=== PATIENT | female | born 1940 | race Caucasian/White ===

== ENCOUNTER → 2016-04-14 | Outpatient (CLI) | payer OTHER ==
--- NOTE | 2016-04-14 17:12 | MA ---
Screening Digital Mammogram With iCAD Analysis Clinical Indications: Routine screening. Technique: Standard cephalocaudal projections are obtained. Digital breast tomosynthesis was performe d in the MLO projection with reconstruction at 1.0 mm slice thickness and composite MLO views reconst ructed. This examination is processed by the iCAD computer aided detection system. Comparison: May 2011, April 2010, April 2008, May 2007. Breast density: Type A: Fatty. Findings: CAD was reviewed. No masses, suspicious calcifications or secondary signs of malignancy are seen. There has been no significant change in the appearance of either breast. Vascular calcificatio ns are noted. Impression: Negative mammogram. BI-RADS 1. Recommendation: Routine mammographic screening in one year. [facility] will send a result letter to the patient. Negative mammography should not preclude additional workup of a clinically suspicious finding. The patient's information is entered into a reminder system with a target due date for her next mammo gram.
== END ==
LOC: FIMAGING 12:39
DX: Z12.31 Encounter for screening mammogram for malignant neoplasm of breast (principal)

== ENCOUNTER 2016-05-02 12:42 | Inpatient (IN) | payer OTHER ==
--- NOTE | 2016-05-02 12:50 | EDPHY ---
H & P Time Seen by Provider: 05/02/16 12:47 - Personal History Tetanus Vaccine Date: < 10 YEARS - Medical/Surgical History Hx Asthma: No Hx Chronic Respiratory Disease: No Hx Diabetes: No Hx Cardiac Disease: Yes Hx Renal Disease: No Hx Cirrhosis: No Hx Alcoholism: No Hx HIV/AIDS: No Hx Splenectomy or Spleen Trauma: No Other PMH: VEIN STRIPPING, DIVERTICULITIS, PARTIAL COLON RESECTION, GOUT, HTN, DVT x2/AFIB - Social History Smoking Status: Former smoker Constitutional: Initial Vital Signs Temperature (C) 36.9 C 05/02/16 12:53 Heart Rate 78 05/02/16 12:53 Respiratory Rate 16 05/02/16 12:53 Blood Pressure 171/86 H 05/02/16 12:53 O2 Sat (%) 96 05/02/16 12:53 O2 Delivery Mode Room Air Allergies/Adverse Reactions: furosemide [From Lasix] Allergy (Severe, Verified 05/02/16 12:53) Other-Enter Comments cephalexin [Cephalexin] Allergy (Intermediate, Verified 05/02/16 12:53) Rash amoxicillin trihydrate [From Augmentin] Allergy (Verified 05/02/16 12:53) redness, itching doxycycline Allergy (Verified 05/02/16 12:53) potassium clavula *RETIRED-11/10/11 [From Augmentin] Allergy (Verified 05/02/16 12:53) redness, itching antibiotic unknown Allergy (Intermediate, Uncoded 05/02/16 12:53) Rash Home Medications: Medication Instructions Recorded Warfarin Sodium [Coumadin 5MG (*)] 5 mg PO TUFR@16 09/09/14 Allopurinol [Allopurinol 300 MG 450 mg PO DAILY 05/29/15 (RX)] Cetirizine [ZyrTEC 10 mg (*)] 10 mg PO DAILY 05/29/15 Cholecalciferol Vit D3 [Vitamin D3 2,000 units PO HS 05/29/15 2000 units] Triamterene/Hctz 75/50 [Maxzide 1 tab PO DAILY 05/29/15 75-50 mg Tab (*)] Warfarin Sodium [Coumadin 2.5MG 2.5 mg PO SUMOWETHSA@16 05/29/15 (*)] Diltiazem Cd [Cardizem ER 120 MG 120 mg PO DAILY #30 cap 05/30/15 (*)] Hydrocodone/Acetaminophen [[place] 1 each PO Q6 PRN 05/30/15 5-325 Tablet] HYDROcodone/APAP 10 [[place] 1 - 2 each PO Q4-6PRN PRN #20 tab 05/02/16 10/325] Medical Decision Making ED Course/Re-evaluation: CHIEF COMPLAINT: Fall and left arm pain HISTORY OF PRESENT ILLNESS: 75-year-old female who was taking her comforter to the nursing director when she tripped over the bag that the comforter was in and fell onto the edge of the counter at the nursing director. She denies hitting anything except her left upper arm and her left ribs as the arm was pushed into the ribs. She denies loss of consciousness. This was not a syncopal episode. This was a mechanical fall after tripping on a bag. REVIEW OF SYSTEMS: A 10 point review of systems was performed and is negative with the exception of the elements mentioned in the history of present illness. PHYSICAL EXAM: HR, BP, O2 Sat, RR. Temp noted General Appearance: Alert, well hydrated, appropriate, and non-toxic appearing. Head: Atraumatic without scalp tenderness or obvious injury Eyes: Pupils equal, round, reactive to light and accommodation, EOMI, no trauma , no injection. Ears: Clear bilaterally, no perforation, normal landmarks Nose: Atraumatic, no rhinorrhea, clear. Throat: There is no erythema or exudates, no lesions, normal tonsils, mucus membranes moist. Neck: Supple, 2+ carotid upstroke, nontender, no lymphadenopathy. Respiratory: No retractions, no distress, no wheezes, and no accessory muscle use. Lungs are clear to auscultation bilaterally. Cardiovascular: Regular rate and rhythm, no murmurs, rubs, or gallops. Bilateral carotid, radial, dorsalis pedis, and posterior tibial pulses intact. Good capillary refill all extremities. Gastrointestinal: Abdomen is soft, nontender, non-distended, no masses, no rebound, no guarding, no peritoneal signs. Musculoskeletal: Pain to palpation of the left upper extremity and pain to any motion. Neurovascularly intact. Elbow and wrist distal to the injury are without problems. Otherwise, Normal active ROM of all extremities, atraumatic. Neurological: Alert, appropriate, and interactive. The patient has normal DTRs and non-focal cranial nerves, motor, sensory, and cerebellar exam. Skin: No rashes, good turgor, no nodules on palpation. Past medical history: Multiple antibiotic allergies infections otherwise noncontributory Past surgical history: Noncontributory Family history: Noncontributory Social history: Single, does not abuse drugs or alcohol, retired DIAGNOSTICS/PROCEDURES/CRITICAL CARE TIME: Study: PA and Lateral Chest X-ray Indication: Trauma Results: After viewing the images myself on the PACS system. My interpretation of the images is: no rib fractures or pneumothorax, suspect fracture of left humeral head fracture. The radiologist interpretation is pending at the time of this dictation. I have discussed the above x-rays with the radiologist. Study: left humerus x-ray Indication: Trauma Results: I viewed the images myself on the PACS system. The radiologist's interpretation is: Nondisplaced fracture of the left greater tuberosity. The radiologist was Dr. Xiong. DIFFERENTIAL DIAGNOSIS: Includes but is not limited to intracranial injury, rib fracture, rib contusion, pneumothorax, left shoulder dislocation, left arm fracture MEDICAL DECISION MAKING: This patient is having significant pain from the left upper extremity. She complains some about her left chest but mostly about her left upper extremity. Worse establishing IV access given her pain medicine to get her comfortable and x-rays are pending. X-rays show a non-displaced left humeral head fracture. I discussed these findings with the patient. She remains neurovascularly intact. She will be discharged in a sling with a script for [place] and referral to ortho. Return precautions given. 1506: As RN was discharging patient, she expressed that she felt uncomfortable going home. She lives alone and does not think she will be able to care for herself at home and feels her pain is not manageable. RN reports she was unsteady on her feet and required assistance to walk. We will involve case management to see what options are available to the patient for home care. bilingual branch manager reports patient has few options for assistance at home and specialist follow up. She recommends admission. 1510: Spoke with hospitalist service. Dr. Miguel accepts admission. Departure - Departure Disposition: [facility] Inpatient Acute Clinical Impression: Intractable pain, Lives alone without help available Humeral head fracture Qualifiers: Encounter type: initial encounter Fracture type: closed Laterality: left Qualified Code(s): S42.292A - Other displaced fracture of upper end of left humerus, initial encounter for closed fracture Condition: Good Instructions: Arm Fracture in Adults (ED) Additional Instructions: 1. Take [place] as prescribed when needed for pain. 2. Keep arm in sling until follow up. 3. You can try applying ice to sore areas. Expect to feel more sore tomorrow. 4. Follow up with orthopedic surgeon next week. 5. Return to the ED for severe pain, weakness or numbness in your hand, or other worsening of condition. Referrals: Estiven Guadarrama MD [Medical Doctor] - As per Instructions Prescriptions: HYDROcodone/APAP 325 [[place] 10/325] 1 - 2 each PO Q4-6PRN PRN #20 tab PRN Reason: Pain, Moderate Report Scribed for: Felton La Report Scribed by: Gabrielle Solomon Date of Report: 05/02/16 Time of Report: 14:35
[2016-05-02] MEDS ORDERED: ONDANSETRON 4 MG/2 ML VIAL ONE (12:59)
[2016-05-02] MEDS ORDERED: HYDROmorphONE/DILAUDID 1 MG/ML SYR ONE (12:59)
[2016-05-02] MEDS ORDERED: OXYCODONE/APAP 5/325 TAB ONE (14:55)
[2016-05-02] MEDS ORDERED: OXYCODONE/APAP 5/325 TAB PO ONE (16:04)
[2016-05-02] MEDS ORDERED: HYDROmorphONE/DILAUDID 2 MG/ML INJ IVP ONE (16:05)
[2016-05-02] MEDS ORDERED: LACTULOSE 20 GM/30 ML UDCUP PO PRN (16:27)
[2016-05-02] MEDS ORDERED: BISACODYL 10 MG SUPP PR PRN (16:27)
[2016-05-02] MEDS ORDERED: ONDANSETRON 4 MG/2 ML VIAL IVP PRN (16:27)
[2016-05-02] MEDS ORDERED: ACETAMINOPHEN 325 MG TAB PO PRN (16:27)
[2016-05-02] MEDS ORDERED: MAGNESIUM HYDROXIDE 30 ML UDCUP PO PRN (16:27)
[2016-05-02] MEDS ORDERED: POLYETHYLENE GLYCOL 3350 17 GM PKT PO PRN (16:27)
--- NOTE | 2016-05-02 16:51 | GHP ---
DATE OF ADMISSION: 05/02/2016 CHIEF COMPLAINT: Left shoulder pain. HISTORY OF PRESENT ILLNESS: This is a 75-year-old female with history of atrial fibrillation, hyper tension, DVT, who presented to the emergency department after sustaining a mechanical fall today. The patient states that she got off work, and was taking her comforter to the street light cleaner to have it kong ndered after her cat vomited on it. While walking into the street light cleaner, she tripped over the bag, causi ng her to fall forward and hitting her left shoulder on the counter. She had immediate severe pain over her left shoulder. She denies any head trauma. She denies any loss of consciousness. In the emergency department, she continued to have severe pain and was thought to be unsteady on her feet, and we were, therefore, asked to admit the patient for further observation since she lives al one. PAST MEDICAL HISTORY: 1. Atrial fibrillation. 2. Hypertension. 3. DVT. 4. Gout. 5. Diverticulitis with colon perforation. 6. Obesity. 7. Chronic renal insufficiency. 8. Peripheral vascular disease. 9. Osteopenia. 10. Chronic sinusitis. 11. Vitamin D deficiency. PAST SURGICAL HISTORY: Colon resection, and vein stripping. HOME MEDICATIONS: Reviewed. Refer to [employer] for details. ALLERGIES: Reviewed. Refer to [employer] for details. SOCIAL HISTORY: The patient lives alone independently. She denies any alcohol tobacco or illicit d rug use. She is a former smoker. REVIEW OF SYSTEMS: Comprehensive 10-point review of systems was done and is negative except for as mentioned in the HPI. PHYSICAL EXAMINATION: VITAL SIGNS: Blood pressure 141/86, pulse of 80, respiratory rate 16, O2 sat uration 96% on room air. Temperature afebrile. GENERAL: No acute distress. HEART: S1, S2. LUNG S: Clear. ABDOMEN: Soft. EXTREMITIES: No clubbing or cyanosis. NEUROLOGIC: Cranial nerves 2-1 2 grossly intact. No focal motor or sensory deficits. CARDIOVASCULAR: 2+ radial pulses bilaterall y. SKIN: No signs of any open fracture of the left shoulder. DIAGNOSTICS: Chest x-ray, which I visualized and personally interpreted, shows a probable nondispla sergio fracture of the proximal left humerus. Humerus x-ray shows nondisplaced fracture of the left greater tuberosity. ASSESSMENT: 1. This is a 75-year-old female, status post mechanical fall, sustaining a nondisplaced fracture of the left greater tuberosity: The patient will be placed on observation since she lives alone and i s having severe pain over her left shoulder, and seems to be a fall risk. Will ask PT and OT to cornell luate the patient. We will treat her pain with Vicodin and ice. It does not appear that Orthopedic s was called in the emergency department, and I will call the on-call orthopedic surgeon, for furthe r evaluation. 2. History of deep venous thrombosis: We will check an INR, as well as baseline labs and continue home medications. 3. History of hypertension: Continue blood pressure medications and monitor. /[id number]/MODL
[2016-05-02] MEDS: oxyCODONE IR 5 MG TAB PO PRN ×2 (16:53→20:56)
[2016-05-02 17:41] LABS: % IMMATURE GRANULYOCYTES 1.3 % (0.0-1.1); ABSOLUTE IMMATURE GRANULOCYTES 0.22 10^3/uL (0.00-0.10); ADD DIFF? NO; ADD MORPH? NO; ADD SCAN? NO; ATYPICAL LYMPHOCYTE FLAG 0 (0-99); FRAGMENT RBC FLAG 0 (0-99); HEMOGLOBIN 12.9 g/dL (12.6-16.3); LEFT SHIFT FLG 10 (0-99); LIPEMIA HEMOLYSIS FLAG 80 (0-99); MEAN CELL HEMOGLOBIN 29.3 pg (27.9-34.1); MEAN CELL HEMOGLOBIN CONCENTR. 32.3 g/dL (32.4-36.7); MEAN CELL VOLUME 90.7 fL (81.5-99.8); MEAN PLATELET VOLUME 10.4 fL (8.7-11.7); PLATELET CLUMPS FLAG 10 (0-99); PLATELET COUNT 267 10^3/uL (150-400); RED BLOOD CELL COUNT 4.41 10^6/uL (4.18-5.33); RED CELL DISTRIBUTION WIDTH 16.8 % (11.5-15.2)
[2016-05-02 17:42] LABS: INR 2.12 (0.83-1.16); PROTIME(PATIENT) 23.9 SEC (12.0-15.0)
[2016-05-02 17:45] LABS: ANION GAP 13 mEq/L (8-16); CALCIUM 10.2 mg/dL (8.5-10.4); CARBON DIOXIDE 23 mEq/l (22-31); CHLORIDE 104 mEq/L (97-110); CREATININE 1.8 mg/dL (0.6-1.0); GLOMERULAR FILTRATION RATE 28; GLUCOSE 119 mg/dL (70-100); POTASSIUM 3.4 mEq/L (3.5-5.2); SODIUM 140 mEq/L (134-144)
[2016-05-02] MEDS: ASCORBIC ACID 500 MG TAB PO SCH (20:55)
[2016-05-02] MEDS: CHOLECALCIFEROL VIT D3 2,000 UNITS TAB/CAP PO SCH (20:56)
[2016-05-02] MEDS: MAGNESIUM OXIDE 400 MG TAB PO SCH (20:56)
[2016-05-02] MEDS: SENNOSIDES/DOCUSATE SODIUM TAB PO SCH (20:58)
[2016-05-02] MEDS: CETIRIZINE 10 MG TAB PO SCH (20:59)
[2016-05-02] MEDS: WARFARIN SODIUM 5 MG TAB PO SCH (21:04)
[2016-05-03] MEDS: oxyCODONE IR 5 MG TAB PO PRN ×5 (04:35→21:21)
--- NOTE | 2016-05-03 06:46 | PDCONSULT ---
Grounds Cleaner Note: Orthopaedic Consult Note S: Patient is a 75y F who writes with her left hand p/w L shoulder and arm pain after fall directly on arm/shoulder. 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 She refused to move until the firemen came. She describes pain all around the soft tissues of her lateral/posterior arm and shoulder. She feels it is painful to move the arm. She was put into a sling in the ED. She was admitted for pain control and a consult was called. Her left arm and hand have been weaker than her right for a long time, but she writes with her left hand PMHx: Includes history of clotting. Eczema. Allergies: Includes lasix, ancef, amoxicillin, doxycycline FamHx: noncontributory Meds: Includes warfarin ROS: No acute issues wiht sight, hearing, breathing, GI, , CV. Regular bleeding from skin due to picking and eczema. Left leg wound/abscess recently drained and dressed. add'l MSK per above. PE: AxOx3 Unlabored breathing hearing intact Moving head and neck LUE in sling Mild edema of Left arm and shoulder. Significant L arm pannus. Palpating border of acromion/clavicle, the humeral head seems roughly centered in the sagittal plane Multiple scabs/sores from patient scratching. No signficant ecchymosis of the arm at this time Diffuse TTP from clavicle/acromion all the was down to lateral arm at elbow and along posterior arm. Possibly more TTP around humeral head. SILT A/R/U/M 4/5 EPL/APB/FDS/FDP2,5/IO Pt refuses to use biceps/triceps nor move arm 2+ radial pulse Imaging: Questionable possible greater tuberosity fracture on initial films. Soft tissue shadow vs hairline fracture line down shaft humeral head appears located, but difficult to distinguish AP: 75y LHD F p/w possible nondisplaced L humerus tuberosity fracture and diffuse soft tissue contusion - Due to the patient's inability to participate in the exam ROM, we will obtain an axillary/velpeau axillary view to confirm location of the joint - Sling for comfort - come out of sling for elbow ROM 3x per day - 15 pound limit in left hand while in sling - If a fracture is present, it is minimally displaced and should improve with time. - We'll see her for followup in ~2 weeks to ensure she's improving
[2016-05-03] MEDS: SENNOSIDES/DOCUSATE SODIUM TAB PO SCH ×2 (08:10→21:21)
[2016-05-03] MEDS: ASCORBIC ACID 500 MG TAB PO SCH ×2 (08:10→21:21)
[2016-05-03] MEDS: CETIRIZINE 10 MG TAB PO SCH ×2 (08:10→21:21)
[2016-05-03] MEDS: ATENOLOL 25 MG TAB PO SCH (08:10)
[2016-05-03 08:14] LABS: ABSOLUTE IMMATURE GRANULOCYTES 0.11 10^3/uL (0.00-0.10); ADD DIFF? NO; ADD MORPH? NO; ADD SCAN? NO; ATYPICAL LYMPHOCYTE FLAG 0 (0-99); FRAGMENT RBC FLAG 0 (0-99); HEMATOCRIT 38.3 % (38.0-47.0); HEMOGLOBIN 12.4 g/dL (12.6-16.3); LEFT SHIFT FLG 0 (0-99); LIPEMIA HEMOLYSIS FLAG 80 (0-99); MEAN CELL HEMOGLOBIN 28.7 pg (27.9-34.1); MEAN CELL HEMOGLOBIN CONCENTR. 32.4 g/dL (32.4-36.7); MEAN CELL VOLUME 88.7 fL (81.5-99.8); MEAN PLATELET VOLUME 9.6 fL (8.7-11.7); PLATELET CLUMPS FLAG 0 (0-99); PLATELET COUNT 227 10^3/uL (150-400); RED BLOOD CELL COUNT 4.32 10^6/uL (4.18-5.33); RED CELL DISTRIBUTION WIDTH 16.9 % (11.5-15.2)
[2016-05-03] MEDS ORDERED: TRIAMTERENE/HCTZ 75/50 1 EACH TAB PO SCH (09:00)
[2016-05-03] MEDS ORDERED: Herbals/Supplements -Info Only PO SCH (09:00)
[2016-05-03] MEDS ORDERED: ALLOPURINOL 300 MG TAB PO SCH (09:00)
[2016-05-03 09:01] LABS: ANION GAP 10 mEq/L (8-16); CALCIUM 10.1 mg/dL (8.5-10.4); CARBON DIOXIDE 24 mEq/l (22-31); CHLORIDE 107 mEq/L (97-110); CREATININE 1.7 mg/dL (0.6-1.0); GLOMERULAR FILTRATION RATE 29; GLUCOSE 101 mg/dL (70-100); POTASSIUM 3.5 mEq/L (3.5-5.2); SODIUM 141 mEq/L (134-144)
--- NOTE | 2016-05-03 09:53 | HOSPPROG ---
Hospitalist Progress Note Assessment/Plan: Patient is a 75-year-old female who presented to the emergency room complaining of left shoulder pain after sustaining a mechanical fall. Today is my 1st encounter with the patient. Chart reviewed. #. Left shoulder pain / nondisplaced fracture of the greater tuberosity and diffuse soft tissue contusion - appreciate Dr. Guadarrama - she will need follow up with him in 2 weeks - sling and 15 lb weight limit - review Physical therapy's notes. [facility]. Patient likely to do poorly at home #. chronic renal insufficiency - reviewed her labs in the past and she is close to her baseline #. leukocytosis - recheck of labs today show much improvement - likely an acute stress reaction #. Eczema -Eucerin cream ordered #. Obesity with a BMI of 32 #. history of DVT -recent INR is therapeutic #. hypokalemia - improved today #. hypertension #.Plan: patient will require another midnight stay/ reviewed PT's notes and recommendation is a SNF/will be difficult for her to manage at home on her own Subjective: Kelli is c/o some left shoulder pain. Objective: Vital Signs Temp Pulse Resp BP Pulse Ox 36.8 C 78 16 147/82 H 94 05/03/16 07:56 05/03/16 07:56 05/03/16 07:56 05/03/16 07:56 05/03/16 08:20 Laboratory Results 05/03/16 08:05 05/03/16 08:05 05/02/16 05/03/16 05/04/16 05:59 05:59 05:59 Intake Total 600 Balance 600 PT 23.9 SEC (12.0-15.0) H 05/02/16 17:19 INR 2.12 (0.83-1.16) H 05/02/16 17:19 - Physical Exam Constitutional: no apparent distress, appears nourished, obese, uncomfortable Eyes: PERRL Ears, Nose, Mouth, Throat: hearing normal Cardiovascular: regular rate and rhythym Respiratory: no respiratory distress Gastrointestinal: normoactive bowel sounds Skin: other (eczema/ scattered on chest, bilateral lower extremities) Musculoskeletal: other (left arm in sling/good cms) Neurologic: AAOx3 Psychiatric: interacting appropriately, not anxious ICD10 Worksheet Patient Problems: Problems Problem Status Onset Humeral head fracture Acute Intractable pain Acute Lives alone without help available Acute Acute exacerbation of congestive heart failure Acute Acute renal failure Acute Atrial fibrillation with slow ventricular response Acute Fall at home Acute Hypotension Acute Lightheaded Acute
[2016-05-03] MEDS ORDERED: EUCERIN/HYDROCERIN CREAM 120GM JAR TP PRN (10:51)
[2016-05-03 12:43] LABS: INR 2.18 (0.83-1.16); PROTIME(PATIENT) 24.4 SEC (12.0-15.0)
[2016-05-03] MEDS ORDERED: WARFARIN SODIUM 2.5 MG TAB PO SCH (16:00)
[2016-05-03] MEDS: MAGNESIUM OXIDE 400 MG TAB PO SCH (21:20)
[2016-05-03] MEDS: CHOLECALCIFEROL VIT D3 2,000 UNITS TAB/CAP PO SCH (21:20)
[2016-05-04 05:28] LABS: % IMMATURE GRANULYOCYTES 1.2 % (0.0-1.1); ABSOLUTE IMMATURE GRANULOCYTES 0.12 10^3/uL (0.00-0.10); ADD DIFF? NO; ADD MORPH? NO; ADD SCAN? NO; ATYPICAL LYMPHOCYTE FLAG 10 (0-99); FRAGMENT RBC FLAG 10 (0-99); HEMOGLOBIN 11.2 g/dL (12.6-16.3); LEFT SHIFT FLG 10 (0-99); LIPEMIA HEMOLYSIS FLAG 80 (0-99); MEAN CELL HEMOGLOBIN 29.2 pg (27.9-34.1); MEAN CELL VOLUME 91.4 fL (81.5-99.8); MEAN PLATELET VOLUME 10.7 fL (8.7-11.7); PLATELET CLUMPS FLAG 0 (0-99); PLATELET COUNT 228 10^3/uL (150-400); RED BLOOD CELL COUNT 3.83 10^6/uL (4.18-5.33)
[2016-05-04] MEDS: oxyCODONE IR 5 MG TAB PO PRN ×3 (05:32→20:39)
[2016-05-04 05:36] LABS: INR 2.34 (0.83-1.16); PROTIME(PATIENT) 25.9 SEC (12.0-15.0)
[2016-05-04 05:53] LABS: ANION GAP 8 mEq/L (8-16); CALCIUM 9.7 mg/dL (8.5-10.4); CARBON DIOXIDE 25 mEq/l (22-31); CHLORIDE 104 mEq/L (97-110); CREATININE 1.9 mg/dL (0.6-1.0); GLOMERULAR FILTRATION RATE 26; GLUCOSE 84 mg/dL (70-100); POTASSIUM 3.6 mEq/L (3.5-5.2); SODIUM 137 mEq/L (134-144)
[2016-05-04] MEDS: CETIRIZINE 10 MG TAB PO SCH ×2 (08:43→20:40)
[2016-05-04] MEDS: SENNOSIDES/DOCUSATE SODIUM TAB PO SCH ×2 (08:43→20:40)
[2016-05-04] MEDS: ASCORBIC ACID 500 MG TAB PO SCH ×2 (08:43→20:40)
[2016-05-04] MEDS: ATENOLOL 25 MG TAB PO SCH (08:43)
--- NOTE | 2016-05-04 11:41 | WOCRNPDOC ---
ANTHONY Advanced Assessment Note - Skin Integrity Problem, Advanced Assess Left Anterior Calf Abscess Dressing Type: Coban, Hydrofera Blue Ready, Joe, Optilock Dressing Description: Intact Exudate Amount: Minimal Exudate Color: Reddish/Yellow Exudate Characteristic(s): Serosanguinous Integumentary Issue Intervention: Dressing Changed, Steri Strips Applied (to secure HFB) Siena Wound Tissue: Intact, Xerotic Siena Wound Swelling: None Wound Bed Color: Red Wound Bed Constitution: Granulation Tissue Wound Edges: Well Defined Site Odor: None Site Measurement - Head-to-Toe Length X Width X Depth (cm): 1.9cmx2.3cmx0.3cm Skin Integrity Problem Comment: [facility] Page. This wound was previously an abscess site w/ subsequent I& D. Since that time, patient reports wound was debrided, but is not "healing on the sides." Presently, wound is 100% granulation tissue w/ no necrosis noted. Margins remain distinct and punched out, and wound edges are attached at base. Periwound skin is very xerotic, w/ scattered scabs and excoriation noted throughout LLE, which pt. reports is r/t scratching. Repairing lotion applied periwound and throughout LLE. Zaida collagen placed in wound bed, followed by HFB secured w/ steri-strips. Site covered w/ Aquacel Ag, Kerlix and coban. patient will most likely dc to rehab facility in the next few days, and states she will follow up with [facility] upon discharge to home. In the interim, orders written for tx while inpatient. Report given to commuter train operator Heidi.
--- NOTE | 2016-05-04 14:48 | HOSPPROG ---
Hospitalist Progress Note Assessment/Plan: Patient is a 75-year-old female who presented to the emergency room complaining of left shoulder pain after sustaining a mechanical fall. #. Left shoulder pain / nondisplaced fracture of the greater tuberosity and diffuse soft tissue contusion - appreciate Dr. Guadarrama - she will need follow up with him in 2 weeks - sling and 15 lb weight limit - review Physical therapy's notes. Recommendation is for [facility] facility. - #. chronic renal insufficiency - creat is a bit elevated -holding allopurinol and nephrotoxic agents -will hydrate overnight/ patient not drinking enough fluids #. leukocytosis - much improved #. Eczema -Eucerin cream ordered -has an appt with her pharmacist manager on Thursday/ asked CM to be sure Hortensia Loza could get her to appt -she is concerned about this / difficult to get an appointment #. left anterior calf abscess -POA -sees Dr Page in OP setting -appreciate wound care #. Obesity with a BMI of 32 #. history of DVT - INR is therapeutic #. hypokalemia - K is 3.6 #. Gout -allopurinol on hold today #. hypertension -bp 154/75 #.Plan: gently hydrate overnight/ hopefully, can go to if stable in the morning Subjective: Kelli has no shoulder pain unless she moves. Objective: Vital Signs Temp Pulse Resp BP Pulse Ox 36.9 C 72 16 154/75 H 90 L 05/04/16 11:59 05/04/16 11:59 05/04/16 11:59 05/04/16 11:59 05/04/16 11:59 Laboratory Results 05/04/16 04:11 05/04/16 04:11 05/03/16 05/04/16 05/05/16 05:59 05:59 05:59 Intake Total 500 Balance 500 PT 25.9 SEC (12.0-15.0) H 05/04/16 04:11 INR 2.34 (0.83-1.16) H 05/04/16 04:11 - Physical Exam Constitutional: no apparent distress, obese, uncomfortable Eyes: PERRL Ears, Nose, Mouth, Throat: hearing normal Cardiovascular: regular rate and rhythym Respiratory: no respiratory distress Gastrointestinal: normoactive bowel sounds Skin: other (mulitple areas of eczema) Musculoskeletal: muscular tenderness Neurologic: AAOx3 Psychiatric: interacting appropriately, not anxious ICD10 Worksheet Patient Problems: Problems Problem Status Onset Humeral head fracture Acute Intractable pain Acute Lives alone without help available Acute Acute exacerbation of congestive heart failure Acute Acute renal failure Acute Atrial fibrillation with slow ventricular response Acute Fall at home Acute Hypotension Acute Lightheaded Acute
[2016-05-04] MEDS ORDERED: NS 1,000 ML IV SCH (15:00)
[2016-05-04] MEDS: WARFARIN SODIUM 5 MG TAB PO SCH (15:17)
--- NOTE | 2016-05-04 16:12 | PDCONSULT ---
Compensation And Benefits Manager Note: Orthopaedic Progress Note S: Pt pain is slowly improving. PE: Sling in place. TTP at proximal humerus XR: proximal humerus fracture, humeral head located on new films A/P: 75y F w L proximal humerus fracture - Limited WB in Left upper extremity in sling to 15 lbs with elbow at side - Sling LUE - Followup with me in 2-3 weeks ([facility]) for repeat films to ensure no major displacements and continued alignment
[2016-05-04] MEDS: MAGNESIUM OXIDE 400 MG TAB PO SCH (20:40)
[2016-05-05 04:39] VITALS: RESP 16
[2016-05-05] MEDS: oxyCODONE IR 5 MG TAB PO PRN ×4 (05:03→16:14)
[2016-05-05 06:15] LABS: INR 2.44 (0.83-1.16); PROTIME(PATIENT) 26.7 SEC (12.0-15.0)
[2016-05-05 07:24] VITALS: BP 123/64; PULSE 80; TEMP 98.2; O2SAT 91
[2016-05-05 08:43] LABS: ANION GAP 10 mEq/L (8-16); CALCIUM 9.3 mg/dL (8.5-10.4); CARBON DIOXIDE 21 mEq/l (22-31); CHLORIDE 105 mEq/L (97-110); CREATININE 1.6 mg/dL (0.6-1.0); GLOMERULAR FILTRATION RATE 32; GLUCOSE 81 mg/dL (70-100); POTASSIUM 3.1 mEq/L (3.5-5.2); SODIUM 136 mEq/L (134-144)
[2016-05-05] MEDS: ASCORBIC ACID 500 MG TAB PO SCH (08:49)
[2016-05-05] MEDS: ATENOLOL 25 MG TAB PO SCH (08:50)
[2016-05-05] MEDS: CETIRIZINE 10 MG TAB PO SCH (08:50)
[2016-05-05] MEDS: SENNOSIDES/DOCUSATE SODIUM TAB PO SCH (08:50)
[2016-05-05] MEDS ORDERED: PROTOCOL POTASSIUM 1 DOSE MISC PRN (12:42)
--- NOTE | 2016-05-05 12:57 | HOSPPROG ---
Hospitalist Progress Note Assessment/Plan: Patient is a 75-year-old female who presented to the emergency room complaining of left shoulder pain after sustaining a mechanical fall. #. Left shoulder pain / nondisplaced fracture of the greater tuberosity and diffuse soft tissue contusion - appreciate Dr. Guadarrama - she will need follow up with him in 2 weeks - sling and 15 lb weight limit - review Physical therapy's notes. Recommendation is for longterm facility. - #. chronic renal insufficiency - improved w hydration - holding allopurinol and nephrotoxic agents #. leukocytosis - much improved #. Eczema -Eucerin cream ordered -has an appt with her packer fuser on Thursday/ asked CM to be sure Troyanastasiya Loza could get her to appt #. left anterior calf abscess -POA -sees Dr Page in OP setting -appreciate wound care #. Obesity with a BMI of 32 #. history of DVT - INR is therapeutic #. hypokalemia - electrolyte protocol #. Gout -allopurinol on hold #. hypertension -bp stable #.Plan: dc today/ recommended she take lower dose of allopurinol/ had been on 450mg. Subjective: Kelli is getting good relief with ice to her shoulder. Objective: Vital Signs Temp Pulse Resp BP Pulse Ox 36.8 C 80 16 123/64 H 91 L 05/05/16 07:23 05/05/16 08:50 05/05/16 07:23 05/05/16 08:50 05/05/16 07:23 Laboratory Results 05/04/16 04:11 05/05/16 06:00 05/04/16 05/05/16 05/06/16 05:59 05:59 05:59 Intake Total 500 1700 Balance 500 1700 PT 26.7 SEC (12.0-15.0) H 05/05/16 04:35 INR 2.44 (0.83-1.16) H 05/05/16 04:35 - Physical Exam Constitutional: no apparent distress, uncomfortable Eyes: PERRL Ears, Nose, Mouth, Throat: hearing normal Cardiovascular: regular rate and rhythym Respiratory: no rales or rhonchi Skin: warm, other (multiple areas of eczema on lower extremities bilaterally) Musculoskeletal: muscular tenderness Neurologic: AAOx3 Psychiatric: interacting appropriately ICD10 Worksheet Patient Problems: Problems Problem Status Onset Fall at home Acute Acute renal failure Acute Atrial fibrillation with slow ventricular response Acute Lightheaded Acute Acute exacerbation of congestive heart failure Acute Hypotension Acute Humeral head fracture Acute Intractable pain Acute Lives alone without help available Acute
--- NOTE | 2016-05-05 14:07 | PDIAF ---
- Diagnosis Diagnosis: left proximal humerus fx, cri, hx of dvt Code Status: Full Code - Medication Management Discharge Medications: Medications to Continue on Transfer Warfarin Sodium [Coumadin 5MG (*)] 5 mg PO SUMOTUWETHFR@16 09/09/14 [Last Taken 05/01/16] Allopurinol [Allopurinol 300 MG (RX)] 450 mg PO DAILY 05/29/15 [Last Taken 05/02] Cetirizine [ZyrTEC 10 mg (*)] 10 mg PO BID 05/29/15 [Last Taken 05/02/16] Cholecalciferol Vit D3 [Vitamin D3 2000 units] 2,000 units PO HS 05/29/15 [Last Taken 05/01/16] Triamterene/Hctz 75/50 [Maxzide 75-50 mg Tab (*)] 1 tab PO DAILY 05/29/15 [Last Taken 05/02/16] Warfarin Sodium [Coumadin 2.5MG (*)] 2.5 mg PO SA@16 05/29/15 [Last Taken ] Ascorbic Acid [Vitamin C 500 mg (*)] 500 mg PO BID 05/02/16 [Last Taken 05/02/16 ] Atenolol [Tenormin 25 mg (*)] 25 mg PO DAILY 05/02/16 [Last Taken 05/02/16] Herbals/Supplements -Info Only 1 ea PO DAILY 05/02/16 [Last Taken Unknown] Magnesium Oxide [Magnesium Oxide 400 mg (*)] 200 mg PO HS 05/02/16 [Last Taken 05/01/16] Acetaminophen [Tylenol 325mg (*)] 650 mg PO Q6 PRN #0 tab 05/05/16 [Last Taken Unknown] Allopurinol [Allopurinol 100 MG (*)] 100 mg PO DAILY #0 tab 05/05/16 [Last Taken Unknown] Allopurinol [Allopurinol 100 MG (*)] 100 mg PO DAILY PRN #0 tab 05/05/16 [Last Taken Unknown] Polyethylene Glycol 3350 [Miralax 17 gm (*)] 17 gm PO DAILY PRN #0 pkt 05/05/16 [Last Taken Unknown] Sennosides/Docusate Sodium [Senokot-S] 1 - 2 tab PO BID #0 tab 05/05/16 [Last Taken Unknown] oxyCODONE IR [Oxycodone Ir (*)] 5 - 10 mg PO Q4 PRN #0 tab 05/05/16 [Last Taken Unknown] Discharge Medications: Refer to the Discharge Home Medication list for PRN reason. - Orders Services needed: Physical Therapy, Occupational Therapy Diet Recommendation: no restrictions on diet Diet Texture: Regular Texture Diet Wound Care Instructions: Dressing change orders for wound on LLE: to be done by labelling machine operator q3 days and PRN. Dressing was applied by wound care on 05/04, and should not need to be changed until 05/07. May change outer dressing (Coban, Kerlix, foam ) as needed. 1) flush wound w/ NS and gauze. 2) apply skin protectant lotion to periwound skin and throughout LLE. 3) apply skin prep to immediate periwound skin. 4) tear off piece of Zaida Promogran (looks like Styrofoam) and place into wound bed. 3) cut piece of Hydrofera Blue Ready foam to fit down into the wound bed (foam side down, writing side facing up), and secure w/ steri-strips. 4) cover w/ Aquacel non-bordered foam, or other like dressing. 5 ) secure w/ Kerlix or Joe, followed by Mirela. Activity/Weight Bearing Restrictions: Limited WB in Left upper extremity in sling to 15 lbs with elbow at side. - Sling LUE. - Followup with Dr Guadarrama in 2- 3 weeks ( [facility]) for repeat films to ensure no major displacements and continued alignment Additional: patient had been on allopurinol 450 mg daily, this has been decreased to 100 mg daily and then 100 mg prn for gout symptoms. Maxzide has been on hold due to worsening creat, but since has improved. Resume on 05/08 / follow kidney function. Also, she has an appointment with [facility] on 05/06 in [place] that she needs to see in regards to her eczema. - Labs/Radiology BMP Date: 05/07/15 (weekly) PT/INR Date: 05/06/16 (every 3 days) - Follow Up Care Current Providers and Referrals: Estiven Guadarrama MD [Medical Doctor] - As per Instructions
[2016-05-05] MEDS ORDERED: POTASSIUM CL 10 MEQ TAB PO ONE (14:35)
--- NOTE | 2016-05-05 14:35 | PDIAF ---
- Diagnosis Diagnosis: left proximal humerus fx, cri, hx of dvt Code Status: Full Code - Medication Management Discharge Medications: Medications to Continue on Transfer Warfarin Sodium [Coumadin 5MG (*)] 5 mg PO SUMOTUWETHFR@16 09/09/14 [Last Taken 05/01/16] Cetirizine [ZyrTEC 10 mg (*)] 10 mg PO BID 05/29/15 [Last Taken 05/02/16] Cholecalciferol Vit D3 [Vitamin D3 2000 units] 2,000 units PO HS 05/29/15 [Last Taken 05/01/16] Triamterene/Hctz 75/50 [Maxzide 75-50 mg Tab (*)] 1 tab PO DAILY 05/29/15 [Last Taken 05/02/16] Warfarin Sodium [Coumadin 2.5MG (*)] 2.5 mg PO SA@16 05/29/15 [Last Taken ] Ascorbic Acid [Vitamin C 500 mg (*)] 500 mg PO BID 05/02/16 [Last Taken 05/02/16 ] Atenolol [Tenormin 25 mg (*)] 25 mg PO DAILY 05/02/16 [Last Taken 05/02/16] Herbals/Supplements -Info Only 1 ea PO DAILY 05/02/16 [Last Taken Unknown] Magnesium Oxide [Magnesium Oxide 400 mg (*)] 200 mg PO HS 05/02/16 [Last Taken 05/01/16] Acetaminophen [Tylenol 325mg (*)] 650 mg PO Q6 PRN #0 tab 05/05/16 [Last Taken Unknown] Allopurinol [Allopurinol 100 MG (*)] 100 mg PO DAILY #0 tab 05/05/16 [Last Taken Unknown] Allopurinol [Allopurinol 100 MG (*)] 100 mg PO DAILY PRN #0 tab 05/05/16 [Last Taken Unknown] Polyethylene Glycol 3350 [Miralax 17 gm (*)] 17 gm PO DAILY PRN #0 pkt 05/05/16 [Last Taken Unknown] Sennosides/Docusate Sodium [Senokot-S] 1 - 2 tab PO BID #0 tab 05/05/16 [Last Taken Unknown] oxyCODONE IR [Oxycodone Ir (*)] 5 - 10 mg PO Q4 PRN #0 tab 05/05/16 [Last Taken Unknown] Discharge Medications: Refer to the Discharge Home Medication list for PRN reason. - Orders Services needed: Physical Therapy, Occupational Therapy Diet Recommendation: no restrictions on diet Diet Texture: Regular Texture Diet Wound Care Instructions: Dressing change orders for wound on LLE: to be done by manager reimbursement q3 days and PRN. Dressing was applied by wound care on 05/04, and should not need to be changed until 05/07. May change outer dressing (Coban, Kerlix, foam ) as needed. 1) flush wound w/ NS and gauze. 2) apply skin protectant lotion to periwound skin and throughout LLE. 3) apply skin prep to immediate periwound skin. 4) tear off piece of Zaida Promogran (looks like Styrofoam) and place into wound bed. 3) cut piece of Hydrofera Blue Ready foam to fit down into the wound bed (foam side down, writing side facing up), and secure w/ steri-strips. 4) cover w/ Aquacel non-bordered foam, or other like dressing. 5 ) secure w/ Kerlix or Joe, followed by Mirela. Activity/Weight Bearing Restrictions: Limited WB in Left upper extremity in sling to 15 lbs with elbow at side. - Sling LUE. - Followup with Dr Guadarrama in 2- 3 weeks ( [employer]) for repeat films to ensure no major displacements and continued alignment Additional: patient had been on allopurinol 450 mg daily, this has been decreased to 100 mg daily and then 100 mg prn for gout symptoms. Maxzide has been on hold due to worsening creat, but since has improved. Resume on 05/08 / follow kidney function. Also, she has an appointment with hand salter on 05/06 in [place] that she needs to see in regards to her eczema. - Labs/Radiology BMP Date: 05/07/15 (weekly) PT/INR Date: 05/06/16 (every 3 days) - Follow Up Care Current Providers and Referrals: Estiven Guadarrama MD [Medical Doctor] - As per Instructions
[2016-05-05] MEDS: WARFARIN SODIUM 5 MG TAB PO SCH (16:08)
--- NOTE | 2016-05-05 20:13 | GDS ---
DISCHARGE DIAGNOSES: 1. Left proximal humerus fracture. 2. Chronic renal insufficiency. 3. Leukocytosis. 4. Eczema. 5. Left anterior calf abscess present on admission. 6. Obesity with a BMI of 32. 7. History of deep venous thrombosis. 8. Hypokalemia. 9. Gout. 10. Hypertension. CONSULTATIONS: Dr. Estiven Guadarrama. BRIEF HISTORY: The patient is a 75-year-old woman who has a history of atrial fibrillation, hypertension, DVT, who presented to emergency after sustaining a mechanical fall. She had taken her comforter to the cleaner assistant and she tripped over the bag, causing her to fall forward and hitting her left shoulder on the counter. A humerus x-ray was performed which showed a nondisplaced fracture of the left greater tuberosity. She was seen and evaluated by Dr. Guadarrama who recommended that she use a sling and he will follow up with her in 2 weeks. HOSPITAL COURSE: 1. Left proximal humerus fracture. She was seen and evaluated by Dr. Guadarrama. She will need to follow up with him in 2 weeks. He is recommending a sling and a 15-pound weight limit. 2. Chronic renal insufficiency. This improved with hydration. 3. Leukocytosis, improved. 4. Eczema. She has an appointment with her comic artist on Thursday. 5. Left anterior calf abscess. This was present on admission. She will get wound care at the rehab facility. 6. Obesity with BMI 32. 7. History of deep venous thrombosis. INR therapeutic. 8. Hypokalemia. She has been placed on electrolyte protocol. 9. Gout. Allopurinol. 10. Hypertension. Blood pressure is stable. PENDING LABS AND TESTS: None. CONDITION ON DISCHARGE: Stable. Blood pressure is 123/64, heart rate is 80, respiratory rate is 16, O2 saturation on room air 91%, temperature is 36.8 Celsius. MEDICATIONS AT DISCHARGE: Please see the EMR. DISCHARGE INSTRUCTIONS: 1. Follow up with Dr. Guadarrama in 2 weeks for repeat x-rays. 2. Wound Care has been written out in detail. 3. INR to be monitored closely as well as her basic metabolic panel. Greater than 30 minutes discharging and coordinating care. /[id number]/MODL MTDD
== END 2016-05-05 16:19 | DRG 563 ==
LOC: EDUNIT# → INTOOBSV 15:08 → F3N 16:28 → OBSVTOIN 05-03 11:00
PROVIDERS: ADMIT Internal Medicine; ATTEND Family Medicine
DX: S42.252A Displaced fracture of greater tuberosity of left humerus, initial encounter for closed fracture (principal); L02.416 Cutaneous abscess of left lower limb; I48.91 Unspecified atrial fibrillation; W01.198A Fall on same level from slipping, tripping and stumbling with subsequent striking against other object, initial encounter; N18.9 Chronic kidney disease, unspecified; E66.9 Obesity, unspecified; M10.9 Gout, unspecified; E87.6 Hypokalemia; I12.9 Hypertensive chronic kidney disease with stage 1 through stage 4 chronic kidney disease, or unspecified chronic kidney disease; L30.9 Dermatitis, unspecified; Y92.59 Other trade areas as the place of occurrence of the external cause; Z87.891 Personal history of nicotine dependence; Z86.718 Personal history of other venous thrombosis and embolism; Z68.32 Body mass index [BMI] 32.0-32.9, adult
CPT/HCPCS: 96374; 97110-GP; 97116-GP; 97161-GP; 97165-GO; 97530-GP; A4565; G0378; G8978-GP-CK; G8979-GP-CJ; G8987-GO-CK; G8988-GO-CI; J1170; J2405

== ENCOUNTER → 2016-09-04 | Outpatient (CLI) | payer OTHER | LOC: FIMAGING 13:18 | PROVIDERS: ATTEND Orthopaedic Surgery | DX: S81.011A Laceration without foreign body, right knee, initial encounter (principal); M79.605 Pain in left leg; M79.89 Other specified soft tissue disorders ==

== ENCOUNTER → 2016-09-24 | Outpatient (CLI) | payer OTHER | LOC: FIMAGING 16:31 | PROVIDERS: ATTEND Internal Medicine Infectious Disease | DX: M71.21 Synovial cyst of popliteal space [Baker], right knee (principal); S80.01XA Contusion of right knee, initial encounter; X58.XXXA Exposure to other specified factors, initial encounter ==

== ENCOUNTER → 2017-05-06 | Outpatient (CLI) | payer OTHER | LOC: FIMAGING 11:19 | PROVIDERS: ATTEND Internal Medicine Infectious Disease | DX: J40 Bronchitis, not specified as acute or chronic (principal); S22.080A Wedge compression fracture of T11-T12 vertebra, initial encounter for closed fracture ==

== ENCOUNTER → 2017-05-25 | Outpatient (CLI) | payer OTHER | LOC: FIMAGING 08:44 | PROVIDERS: ATTEND Family Medicine | DX: Z13.820 Encounter for screening for osteoporosis (principal); M85.89 Other specified disorders of bone density and structure, multiple sites; M53.84 Other specified dorsopathies, thoracic region ==